=== PATIENT | male | born 1935 | race Caucasian/White ===

== ENCOUNTER 2020-03-14 12:53 | Outpatient (CLI) | payer OTHER, SELFPAY ==
--- NOTE | 2020-03-14 12:59 | CT_ITS ---
WS: [id number] CT ANGIOGRAPHY abdomen and pelvis AORTA HISTORY: AAA TECHNIQUE: CT angiogram is performed during IV injection. MIP imaging reviewed. Reformation images re viewed. All CT scans at [facility] use at least one of these dose optimization techniques: automated exposure control; mA and/or kV adjustment per patient size (includes targeted exams where dose is matched to clinical indication); or iterative reconstruction. CONTRAST: Omnipaque 350; 95 mL IV. DLP: 948.78 mGycm COMPARISON: 09/05/2019 Mild dependent changes at the lung bases. Mild enlargement of the cardiac chambers. No pericardial ef fusion. Small hiatal hernia. Early enhancement of the liver, spleen, gallbladder, pancreas, adrenals and kidneys are negative for acute change. Again noted is a 2.5 cm cyst in the RIGHT kidney. No ascites or adenopathy. Sigmoid div erticulosis without acute diverticulitis. Moderate enlargement the prostate gland. Abdominal aorta: Tortuous abdominal aorta. Significant deviation of the aorta to the RIGHT. Dilated e ctatic aorta with infrarenal. Transverse diameter obtained at a RIGHT axis to the lumen is 5.4 cm and has not significantly changed since the prior study. Visually the aneurysm appears stable. There is no periaortic hematoma or change in the calcification or progression of thrombus. Iliac arteries are both patent although tortuous. Small amount of intimal thickening at the origin of the celiac axis. S MA is normal. Osteopenia and degenerative changes in the spine. CT/CT angio abdomen pelvis 13338 IMPRESSION: 1. Tortuous ectatic abdominal aortic aneurysm. Infrarenal aneurysm with a maxi mum diameter of 5.4 cm. Similar to the prior study. 2. No acute abdominal abnormalities otherwise.
[2020-03-14 13:40] LABS: Blood Urea Nitrogen 16 mg/dL (8-23)
[2020-03-14] MEDS: iohexol 350 mg/mL 100 mL Btl IV (13:49)
== END 2020-03-14 12:54 | disposition home or self-care (01) ==
LOC: RADWPI 12:57
PROVIDERS: Family Provider Internal Medicine Cardiovascular Disease; PCP Internal Medicine Cardiovascular Disease; Visit Provider Emergency Medicine Emergency Medical Services
DX: I71.4 Abdominal aortic aneurysm, without rupture (principal)
CPT/HCPCS: 74174; 82565; 84520; Q9967

== ENCOUNTER 2020-10-09 08:21 | Outpatient (CLI) | payer OTHER, SELFPAY ==
[2020-10-09 08:57] LABS: Blood Urea Nitrogen 14 mg/dL (8-23)
--- NOTE | 2020-10-09 09:00 | CT_ITS ---
WS: [id number] CT ANGIOGRAPHY ABDOMEN AORTA HISTORY: I71.4 - Abdominal aortic aneurysm, without rupture TECHNIQUE: CT angiogram is performed during IV injection. Reformation images reviewed. All CT scans a [facility] use at least one of these dose optimization techniques: automated exposure co ntrol; mA and/or kV adjustment per patient size (includes targeted exams where dose is matched to cli nical indication); or iterative reconstruction. CONTRAST: Omnipaque 350; 95 mL IV. DLP: 727.8 mGycm COMPARISON: 03/14/2020 Chronic emphysematous changes at the lung bases. Cardiac chambers are moderately enlarged. No pericar dial effusion. Small hiatal hernia. Abdominal aorta: Markedly tortuous dilated abdominal aorta. Dilated aorta extends to the RIGHT of mid line. There is marked dilatation of the infrarenal aorta. Maximum transverse diameter obtained perpen dicular to the long axis is 5.6 cm which is minimally increased by 2 mm since the prior study. Aneury sm extends over a length of 10 cm to the bifurcation. 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 Scattered calcification in a small amount of thr ombus throughout the aneurysm. Common iliac arteries are both patent. Mild ectasia but no aneurysmal dilatation. Celiac axis and superior mesenteric arteries are both patent with mild atherosclerotic pl aque. Calcified plaque at the origin of the renal arteries. 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 Scattered too small to characterize hypodensities in the liver. These were present on the prior study and probably small cysts. Normal size liver. Negative gallbladder. Pancreas and spleen are negative. Marked tortuosity of the splenic artery. No adrenal mass. Early enhancement phase of the kidneys dem onstrates no mass. 2.4 cm cyst RIGHT kidney. No free fluid or adenopathy. Ventral abdominal wall sylvia ia contains fat only. L1 compression fracture by 20% with 2 mm retropulsion of posterior superior endplate is new since 03/14. CT/CT angio abdomen 51600 IMPRESSION: 1. Markedly ectatic, tortuous infrarenal abdominal aortic aneurysm. Maximum di ameter 5.6 cm which is increased by 2 mm since the prior study from 03/14/2020. 2. Abdominal aortic aneurysm extends over length of 10 cm to the bifurcation. 3. Chronic emphysema and moderate cardiomegaly. 4. New L1 20% compression fracture.
[2020-10-09] MEDS: iohexol 350 mg/mL 100 mL Btl IV (09:11)
== END 2020-10-09 08:22 | disposition home or self-care (01) ==
LOC: RADWPI 08:26
PROVIDERS: PCP Internal Medicine; Visit Provider Internal Medicine
DX: I71.4 Abdominal aortic aneurysm, without rupture (principal); S32.010A Wedge compression fracture of first lumbar vertebra, initial encounter for closed fracture; X58.XXXA Exposure to other specified factors, initial encounter; J43.9 Emphysema, unspecified
CPT/HCPCS: 74175; 82565; 84520; Q9967

== ENCOUNTER 2020-10-16 14:01 | Outpatient (CLI) | payer OTHER, SELFPAY ==
--- NOTE | 2020-10-16 14:30 | CT_ITS ---
WS: [id number] CTA ABDOMEN PELVIS TECHNIQUE: Contrast enhanced CTA of the abdominal aorta and pelvis with coronal and sagittal reformat john images and additional MIP Images. CLINICAL INFORMATION: I71.4 - Abdominal aortic aneurysm, without rupture COMPARISON: Multiple prior examinations most recent October 09, 2020 DLP: 1042.[address] scans at [facility] use at least one of these dose optimization techniques: automat ed exposure control; mA and/or kV adjustment per patient size (includes targeted exams where dose is matched to clinical indication); or iterative reconstruction. FINDINGS: Again seen is the tortuous and aneurysmal abdominal aorta with marked dilatation of the infrarenal ab dominal aorta. This is unchanged since the recent study measuring approximately 5.9 x 5.5 x 9.3 cm AP by transverse by craniocaudal. 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 Ectatic and tortuous common iliac arteries bilaterally. Mild aorti c atheromatous disease. No significant peripheral mural thrombus. Celiac and SMA are patent. Proximal renal arteries are patent. Normal renal parenchymal enhancement. Inferior mesenteric artery is paten t. Diffuse fatty infiltration of the liver. Small low-attenuation lesions unchanged likely hepatic cysts but too small to definitively characterize. Gallbladder is contracted. Lung bases are well aerated. Noncalcified nodule left upper lobe measuring 4 mm. Dependent atelectasis in the lung bases. Small es ophageal hiatal hernia. Adrenal glands are normal. Normal renal parenchymal enhancement. No hydroneph rosis. Small right renal cyst. Incidental fat-containing umbilical hernia. Markedly enlarged prostate measuring 6.5 cm. Recommend correlation PSA. A few sigmoid diverticuli. L1 compression fracture is unchanged. CT/CT angio abdomen pelvis 80817 IMPRESSION: 1. Tortuous infrarenal abdominal aortic aneurysm is unchanged from the most re cent examination October 09, 2020. 2. Aneurysm measurements 5.9 x 5.5 x 9.3 cm AP by transverse by craniocaudal. 3. L1 compression fracture is unchanged.
[2020-10-16] MEDS: iohexol 350 mg/mL 100 mL Btl IV (14:32)
== END 2020-10-16 14:02 | disposition home or self-care (01) ==
LOC: RADWPI 14:03
PROVIDERS: PCP Internal Medicine; Visit Provider Internal Medicine
DX: I71.4 Abdominal aortic aneurysm, without rupture (principal); S32.010A Wedge compression fracture of first lumbar vertebra, initial encounter for closed fracture; X58.XXXA Exposure to other specified factors, initial encounter
CPT/HCPCS: 74174; Q9967

== ENCOUNTER 2020-11-16 10:15 | Outpatient (CLI) | payer OTHER, SELFPAY ==
[2020-11-16 10:22] VITALS: BMI 25.8
--- NOTE | 2020-11-16 10:58 | NMCV_ITS ---
NM avery perf SPECT r/s* [id number] Ammy Zavala Age: 84 Gender: M : 1935 Exam Date: 11/16/2020 12:08 Ordering Phys: Stephen Sifuentes M.D ([email or web address]) Technologist: MARIJA Jaime Exam Location: [facility] Indications: Chest pain STRESS TEST Please [facility] IMAGE PROTOCOL Rest/Stress 1 Lexiscan Day Radiopharmaceutical Dose (mCi) Administration Site Administered by Rest: Tc-99m 10.6 IV Nata Fred, PAPER SAMPLE CLERK Sestamibi Stress:Tc-99m 32.6 IV Nata Fred, PAPER SAMPLE CLERK Sestamibi Rest: 16-Nov-2020 60 Discovery 630 Stress: 16-Nov-2020 45 Discovery 630 0.4mg Lexiscan. Images obtained in supine and prone position. SPECT RESULTS Technical Quality: Good Raw Data Analysis: Normal Image Corrections: No attenuation or motion correction applied Summed Stress Score: 1 Summed Rest Score: 0 Summed Difference Score: 1 PERFUSION FINDINGS There is homogenous radiotracer uptake throughout the myocardium. No evidence of ischemia is noted FUNCTIONAL RESULTS (calculated via Gated SPECT) Stress Image LV EF (%): 65 Stress EDV (mL):102 TID: 1.1 Stress ESV (mL):36 FUNCTIONAL FINDINGS: There is normal left ventricular systolic function. IMPRESSIONS 1) Normal myocardial perfusion imaging without evidence of ischemia 2) LV systolic function is normal Stephen Sifuentes MD (Electronically Signed) Final Date: 16 November 2020 18:15 S
--- NOTE | 2020-11-16 10:58 | ECG_ITS ---
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 Interpretive Statements NAME OF STUDY: LEXISCAN SESTAMIBI STRESS TEST INDICATION: [Chest Pain, ] Procedure: At the baseline, the blood pressure was 154/73mmHg, with a heart rate of 46 bpm. The electrocardiogram showed sinus bradycardia, normal with normal ST and T waves. The Lexiscan was infused over a duration of 20 seconds. A total of 0.4 mg of Lexiscan was infused. The stress phase was continued for a total of 5 minutes. Heart rate at the end of stress phase was 71 bpm with a blood pressure 150/76 mmHg. The EKG at the peak infusion revealed sinus rhythm with no significant ST-T wave changes. Sestamibi was injected 20 seconds after Lexiscan infusion. Blood pressure at the end of the recovery phase was 142/71mmHg with a heart rate of 62 bpm. Conclusion: 1. Normal EKG response to Lexiscan infusion. 2. No Lexiscan induced chest pain or cardiac arrhythmia. 3. Normal blood pressure and heart rate response. 4. Sestamibi/sestamibi perfusion scan pending; see separate report. Electronically Signed On 11-25-2020 18:00:00 CDT by Stephen Sifuentes M.D. [id number]
[2020-11-16] MEDS: regadenoson 0.4 Mg/5 ml Syringe IVP (12:41)
[2020-11-16 12:50] VITALS: BP 142/71; PULSE 63
--- NOTE | 2020-11-16 13:30 | USCV_ITS ---
Ammy Zavala Age: 84 Gender: M : 1935 Exam Date: 11/16/2020 11:12 Ordering Phys: Stephen Sifuentes M.D ([email or web address]) Technologist: Britt Zhu [place] [facility] [place]: CHEST PAIN BP: 122 / 59 HR: 48 Rhythm: Sinus Technical Quality: FAIR MEASUREMENTS (Male / Female) Normal Values 2D ECHO LV Diastolic Diameter PLAX 3.4 cm 4.2 - 5.9 / 3.9 - 5.3 cm LV Systolic Diameter PLAX 2.4 cm LV Chamber Size 4.6 cm IVS Diastolic Thickness 1.2 cm 0.6 - 1.0 / 0.6 - 0.9 cm IVS Systolic Thickness 1.2 cm LVPW Diastolic Thickness 1.8 cm 0.6 - 1.0 / 0.6 - 0.9 cm LVPW Systolic Thickness 2.1 cm RV Chamber Size 3.9 cm LVOT Diameter 2.0 cm LV Ejection Fraction 2D Teich 57.5 % LV Ejection Fraction MOD 2C 69.8 % LV Ejection Fraction 2C AL 70.8 % LA Diameter 3.3 cm LA Width 3.2 cm LA Height 3.6 cm RA Width 2.9 cm RA Height 3.9 cm Aorta at Sinotubular Diameter 3.1 cm M-MODE LV Diastolic Diameter MM 7.5 cm 4.2 - 5.9 / 3.9 - 5.3 cm LV Systolic Diameter MM 4.9 cm LV Ejection Fraction MM Teich 61.9 % IVS Diastolic Thickness MM 0.8 cm 0.6 - 1.0 / 0.6 - 0.9 cm IVS Systolic Thickness MM 1.3 cm LVPW Diastolic Thickness MM 0.9 cm 0.6 - 1.0 / 0.6 - 0.9 cm LVPW Systolic Thickness MM 1.4 cm Aortic Annulus Diameter 3.5 cm LA Ao Ratio MM 1.1 MV E Point Septal Separation 0.5 cm DOPPLER AV Peak Velocity 161.7 cm/s LVOT Peak Velocity 128.7 cm/s AV Area Cont Eq vti 2.7 cm squared AV Area Cont Eq pk 2.6 cm squared MV Area PHT 2.5 cm squared Mitral E to A Ratio 0.9 MV E' Velocity 37.0 cm/s Mitral E to MV E' Ratio 6.8 Mitral E to LV E' Lateral Ratio 6.4 Mitral E to LV E' Septal Ratio 7.2 TR Peak Velocity 260.7 cm/s TR Peak Gradient 27.2 mmHg TV Peak E Velocity 51.0 cm/s Right Atrial Pressure 3.0 mmHg Pulmonary Artery Systolic Pressu 30.2 mmHg PV Peak Velocity 67.0 cm/s RV Acceleration Time 0.2 s RV Ejection Time 0.4 s RV AcT/ET 0.4 FINDINGS Left Ventricle Normal left ventricular cavity size. Normal left ventricular systolic function. No regional wall motion abnormalities. Left ventricular ejection fraction is estimated at 61 %. Grade I/IV diastolic dysfunction (abnormal relaxation filling pattern), normal to mildly elevated filling pressures. Right Ventricle The right ventricle is normal in size and function. Right Atrium The right atrium is normal in size. Left Atrium The left atrium is normal in size. Mitral Valve Structurally normal mitral valve without significant stenosis or prolapse. There is no mitral regurgitation. Aortic Valve Moderate aortic valve calcification. No aortic valve stenosis. Mild aortic valve regurgitation. Tricuspid Valve Structurally normal tricuspid valve without significant stenosis or regurgitation. Pulmonary artery systolic pressure is normal. Pulmonic Valve Structurally normal pulmonic valve without significant stenosis. There is no pulmonic regurgitation. Pericardium Normal pericardium without effusion. Aorta Normal ascending aorta dimension. CONCLUSIONS 1-Normal left ventricular cavity size. Normal left ventricular systolic function. No regional wall motion abnormalities. Left ventricular ejection fraction is estimated at 61 %. Grade I/IV diastolic dysfunction (abnormal relaxation filling pattern), normal to mildly elevated filling pressures. 2-Moderate aortic valve calcification. No aortic valve stenosis. Mild aortic valve regurgitation. 3-There is no pericardial effusion. 4-Pulmonary artery systolic pressure is within normal limits. 5-Right atrial pressure is around 5 mm of mercury. 6-There are no prior echocardiogram studies to compare. Marisa Elizabeth MD (Electronically Signed) Final Date: 16 November 2020 18:22 S
== END 2020-11-16 10:16 | disposition home or self-care (01) ==
LOC: CDL 10:17
PROVIDERS: PCP Internal Medicine; Visit Provider Internal Medicine
DX: I71.4 Abdominal aortic aneurysm, without rupture (principal); R07.9 Chest pain, unspecified; I48.91 Unspecified atrial fibrillation; I35.1 Nonrheumatic aortic (valve) insufficiency
CPT/HCPCS: 78452; 93017; 93306; A9500; J2785

== ENCOUNTER → 2021-01-23 12:20 | Outpatient (BNVA) | payer OTHER, SELFPAY | PROVIDERS: PCP Internal Medicine; Visit Provider Thoracic Surgery (Cardiothoracic Vascular Surgery) | DX: Z01.812 Encounter for preprocedural laboratory examination (principal); Z20.822 Contact with and (suspected) exposure to COVID-19 | CPT/HCPCS: 87635 ==

== ENCOUNTER 2021-01-28 06:21 | Inpatient (IN) | payer OTHER, MEDICARE, SELFPAY ==
[2021-01-23 10:53] VITALS: BMI 25.2
[2021-01-23 11:50] LABS: Basophils % 0.3 %; Eosinophils # 0.1 10^3/uL (0.0-0.8); Eosinophils % 1.5 %; Hemoglobin 13.8 g/dL (11.7-16.6); Lymphocytes # 0.9 10^3/uL (0.8-4.8); Lymphocytes % 13.8 %; Mean Corpuscular HGB Conc 32.9 g/dL (30.0-36.0); Mean Corpuscular Hemoglobin 32.6 pg (28.0-34.0); Mean Corpuscular Volume 99.3 fL (80-94); Mean Platelet Volume 10.1 fL (7.4-10.4); Monocytes # 0.8 10^3/uL (0.2-0.9); Monocytes % 12.3 %; Neutrophils # 4.86 10^3/uL (1.8-7.7); Neutrophils % 71.8 %; Nucleated Red Blood Cells % 0 %; Platelet Count 214 10^3/cmm (130-400); Red Blood Count 4.23 10^6/uL (4.1-5.3); Red Cell Distribution Width 13.2 % (12.1-15.1); White Blood Count 6.8 10^3/uL (4.0-10.0)
--- NOTE | 2021-01-23 11:53 | ANES.PREANE2 ---
Pre-Anesthetic Assessment Pre-Anesthetic Assessment: Height/Weight: Height 1.79 m Weight 80.739 kg Preop Diagnosis: Endovascular abdominal aortic aneurysm repair Proposed Procedure: Operation Date: 01/28/21 07:00 Proposed Procedures p AAA Stent Cutdown Endovascular Aortic Repair with poss open abdominal(Not Applicable) - Jermaine Estrada MD Operation Date: 01/28/21 07:00 Proposed Procedures p Endovascular Aortic Repair(Not Applicable) - Jermaine Estrada MD Familial anesthetic complications: None Social: Social History: No alcohol and No tobacco Exam: Pre-Anes Outpt Exam: alert, oriented x 3, clear to auscultation bilaterally and regular rate & rhythm Airway: Cervical ROM: WNL MP: 4 Dentition: Full CV/HEM: CV/HEM: Afib Comments: abdominal aortic aneurysm Metabolic: Metabolic: Hyperlipidemia Anesthetic Plan: ASA status: 3 Anesthesia: General Other: A-line Risk of > 500 ml blood loss (7ml/kg in children): No PFSH Anesthesia PFSH: Medical History AAA (abdominal aortic aneurysm) Hyperlipidemia Family History Other Diabetes Social History Smoking and tobacco status: never smoked Household members: spouse Marital status: Data Anesthesia CBC & Chem 7: 01/23/21 11:15 01/23/21 11:15 Other Labs: Laboratory Results - last 48 hr 01/23/21 11:15 WBC 6.8 RBC 4.23 Hgb 13.8 Hct 42.0 MCV 99.3 H MCH 32.6 MCHC 32.9 RDW 13.2 Plt Count 214 MPV 10.1 Neut % (Auto) 71.8 Lymph % (Auto) 13.8 Bollinger % (Auto) 12.3 Eos % (Auto) 1.5 Baso % (Auto) 0.3 Neut # (Auto) 4.86 Lymph # (Auto) 0.9 Bollinger # (Auto) 0.8 Eos # (Auto) 0.1 Baso # (Auto) 0.0 Nucleated RBC % (auto) 0 Nucleated RBCs # 0.0 Cardiac Studies: No Data to Display
[2021-01-23 12:03] LABS: Add Urine Microscopic? YES; Bilirubin Urine Neg (Negative); Blood Urine 2+ (Negative); Glucose Urine UA Norm (Normal); Ketones Urine 1+ (Negative); Leukocyte Esterase Urine Negative (Negative); Nitrate Urine Negative (Negative); Protein Urine Neg (Negative); Urine Appearance Clear (CLEAR); Urine Color Yellow (Yellow); Urobilinogen Urine Norm (Negative); pH Urine 5 (5-7)
[2021-01-23 12:07] LABS: Mucus Urine 4+ /hpf
[2021-01-23 12:11] LABS: Anion Gap 13.4 (5-19); Blood Urea Nitrogen 17 mg/dL (8-23); Carbon Dioxide 29 mmol/L (22-29); Chloride 101 mmol/L (98-107); Glucose 126 mg/dL (65-115); Osmolality Calculated 291 mOsm/kg (285-295); Potassium 4.4 mmol/L (3.5-5.1); Sodium 139 mmol/L (136-145)
[2021-01-23 12:15] LABS: Add Urine Culture? No; Bacteria Urine TRACE /hpf; Squamous Epithelial Cell Urine 0-4 /hpf (0-5); WBC Urine 0-4 /hpf (0-5)
[2021-01-28] VITALS (59 sets, daily range): BP systolic 112–148; BP diastolic 58–97; PULSE 41–71; RESP 6–31; TEMP 36.6–37; O2SAT 83–99
--- NOTE | 2021-01-28 06:13 | ECG_ITS ---
[facility] Test Date: 2021-01-28 Pat Name: Ammy Zavala Department: Room: ICU10 Gender: Male Volleyball Coach: : 1935 Requested By: Jermaine Estrada Order Number: [id number] Edis MD: Terra An M.D. Measurements Intervals [place] Rate: 58 P: 29 FL: 229 QRS: 6 QRSD: 94 T: 75 QT: 415 QTc: 410 Interpretive Statements SINUS BRADYCARDIA WITH FIRST DEGREE AV BLOCK WITH OCCASIONAL VENTRICULAR PREMATURE COMPLEXES NONSPECIFIC T-WAVE ABNORMALITY No previous ECG available for comparison Electronically Signed On 01-29-2021 0:51:50 CDT by Terra An M.D. [id number]
--- NOTE | 2021-01-28 06:13 | XRR_ITS ---
PROCEDURE INFORMATION: Exam: XR Chest Exam date and time: 01/28/2021 6:22 AM Age: 85 years old Clinical indication: Pre-operative exam; Cardiovascular screening and respiratory screening exam; Additional info: Preop for evar TECHNIQUE: Imaging protocol: XR of the chest. Views: 2 views. COMPARISON: No relevant prior studies available. FINDINGS: Lungs: Unremarkable. No consolidation. Pleural spaces: Unremarkable. No pleural effusion. No pneumothorax. Heart/Mediastinum: Unremarkable. No cardiomegaly. Bones/joints: Unremarkable. XR/XR chest 2V* [id number] IMPRESSION: No acute findings.
--- NOTE | 2021-01-28 06:19 | PM.HP ---
Providers/Chief Complaint Admitting Physician: Dr. Estrada Primary Care Provider: Esau Asif Chief Complaint: aaa repair possible open abdominal History of Present Illness Ammy Zavala is an 85 year old male I saw originally in consultation on an outpatient clinic visit on November 05 upon referral for an infrarenal abdominal aortic aneurysm with documented enlargement. Aneurysm measures 5.9 x 5.5 x 9.3 cm in the AP by transverse by craniocaudal dimensions. There is a small juxtarenal component. The left common iliac artery comes off the termination point of the aneurysm. There is noted moderate tortuosity. Neck angulation is 14.2 degrees. He has a family history of AAA with his brother having repair several years ago in [place]. He has never used tobacco. He is asymptomatic from his AAA. He is followed through the [facility] system. He had been previously followed by Dr. Cardenas from our heart care services and was septic referred by Dr. Sifuentes due to documented further enlargement of his AAA. During his original evaluation with me he was noted to have atrial fibrillation. He was evaluated by Dr. Winslow which included stress testing and was cleared from a cardiac standpoint to proceed with plans for AAA. Our [employer] technical team has assisted with evaluation and we are currently recommending an alto system. Since his last visit with me of November 22, he remains asymptomatic. 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 He is eager to proceed with plans for repair. Review of Systems Const: Denies: fever(s), chills, change in appetite, change in weight, fatigue or night sweats Eyes: Denies: change in vision or blurry vision ENMT: Denies: odynophagia or hoarseness Card: Denies: chest pain, palpitations, irregular heart rhythm or edema Resp: Denies: dyspnea or productive cough GI: Denies: abdominal pain, nausea, vomiting, dysphagia, heartburn or change in bowel habits : Denies: difficulty urinating, dysuria, urinary frequency, urinary urgency or urinary hesitancy Musc: Denies: extremity pain or extremity swelling Skin/Breast: Denies: rash Neuro: Denies: headache(s), numbness in extremities, weakness in extremities or sensory changes Psych: Denies: anxiety, depression or change in appetite Endo: Denies: polyuria, polydipsia or cold intolerance Young/Lymph: Reports: easy bruising; Denies: easy bleeding, petechiae or enlarged lymph nodes Medications/Allergies Home Medications Medication Instructions Recorded Confirmed Last Taken Type ascorbic acid (vitamin C) 500 mg 500 mg PO DAILY 03/08/20 01/23/21 Unknown History capsule finasteride 5 mg tablet 5 mg PO DAILY 03/08/20 01/23/21 Unknown History garlic 1,000 mg capsule 1,000 mg PO DAILY 03/08/20 01/23/21 Unknown History tamsulosin 0.4 mg capsule 0.4 mg PO DAILY 03/08/20 01/23/21 Unknown History Allergies Allergy/AdvReac Type Severity Reaction Status Date / Time azithromycin Allergy Unknown Unknown Verified 11/22/20 08:58 PFSH Acute PFSH: Medical History AAA (abdominal aortic aneurysm) Hyperlipidemia Family History Other Diabetes Social History Smoking and tobacco status: never smoked Household members: spouse Marital status: Physical Exam Const: COMMON NORMALS: patient oriented x3 and alert ORIENTATION/CONSCIOUSNESS: Yes oriented to person, Yes oriented to place and Yes oriented to time HENMT: COMMON NORMALS: normocephalic HEAD & SCALP: normocephalic; no cranial bruits Neck/C-Spine: COMMON NORMALS: full ROM, supple, no JVD and No carotid bruits GENERAL: Yes trachea midline CERVICAL SPINE: Yes cervical ROM normal Chest: COMMONS NORMALS: normal inspection of the chest and normal palpation of entire chest wall Resp: COMMON NORMALS: normal respiratory effort, No use of accessory muscles, clear to auscultation bilaterally and percussion normal EFFORT & INSPECTION: Yes able to speak in complete sentences and Yes symmetric chest movement AUSCULTATION: clear to auscultation bilaterally PERCUSSION: percussion normal Cardio: COMMON NORMALS: no JVD, regular rate, S1 normal heart sound present, S2 normal heart sound present, No gallops present (Cardio), No murmurs present (Cardio), No rub (Cardio) and Peripheral pulses 2+ throughout JUGULAR VENOUS DISTENTION: no JVD RATE: regular rate RHYTHM: regular rhythm HEART SOUNDS: S1 normal heart sound present and S2 normal heart sound present PERIPHERAL PULSES: Peripheral pulses 2+ throughout GI: COMMON NORMALS: Normal to inspection, nondistended, normoactive bowel sounds present, Soft to palpation and no bruits AUSCULTATION: Yes normoactive bowel sounds PALPATION: Yes Pulsatile mass present (Easily palpable abdominal aneurysm. Nontender.) Neuro: COMMON NORMALS: patient oriented x3, no focal motor deficits and no sensory deficits noted SENSORIUM/ORIENTATION: Yes alert, Yes oriented to person, Yes oriented to place and Yes oriented to time GAIT: Yes Normal gait present Data : 01/23/21 11:15 01/23/21 11:15 A&P Assessment and plan (1) AAA (abdominal aortic aneurysm): 85-year-old gentleman with a 5.9 cm juxtarenal abdominal aortic aneurysm. He is undergone careful preop evaluation including cardiac clearance. Details of risk of AAA repair were frankly discussed. We tentatively plan to initiate repair by endovascular technique. He understands that this may result in need for open repair. Risks reviewed include the possibility of , stroke, heart attack, major bleeding, kidney failure requiring hemodialysis, acute ischemia to the lower extremities requiring further procedure or possible major amputation, need for abdominal approach for open repair, infection, pneumonia, organ failure, failure to benefit, prolonged hospital stay, pain after the procedure, need for further procedures, inability to complete the procedure, and need for long-term followup. All questions were answered. Appropriate consents have been provided for review and signature. Status: Acute Attestations Medical Necessity Statement*: 5.9 cm juxtarenal abdominal aorta aneurysm Time Spent in Patient Care: Greater than 35 minutes Coding Level of Care Code Acute Cryptological Technician for [facility] Kristofer Diagnoses AAA (abdominal aortic aneurysm) I71.4
--- NOTE | 2021-01-28 07:14 | P.ANESUD_ITS ---
Pre-Anesthetic Update Pre-Anesthetic Assessment: Date of Surgery/Procedure: 01/28/21 Preop Yasmine gnosis: Endovascular abdominal aortic aneurysm repair Proposed Procedure: Operation Date: 01/28/21 07:00 Proposed Procedures p AAA Stent Cutdown Endovascular Aortic Repair with poss open abdominal(Not Applicable) - Jermaine Estrada MD Operation Date: 01/28/21 07:00 Proposed Procedures p Endovascular Aortic Repair(Not Applicable) - Jermaine Esrtada MD Any changes to Pre-Anesthetic Assessment?: No Labs Last 48hrs: Laboratory Results - last 48 hr 01/23/21 11:15 Blood Type O Positive Rho(D) Type Positive / 4+ Antibody Screen Negative Crossmatch See Detail Vitals: Temperature 98.6 F 01/28/21 06:49 Temperature Source Skin 01/28/21 06:49 Pulse Rate 58 L 01/28/21 06:49 Pulse Rhythm 01/28/21 06:49 Pulse Strength 3+ Normal 01/28/21 06:49 Respiratory Rate 16 01/28/21 06:49 Blood Pressure 145/83 01/28/21 06:49 Blood Pressure [place] n 103 01/28/21 06:49 Pulse Oximetry 98 01/28/21 06:49 Oxygen Delivery Me thod 01/28/21 06:49 Exam: Pre-Anes Outpt Exam: alert, oriented x 3, clear to auscultation bilaterally and regular rate & rhythm Cardiac Studies: No Data to Display
--- NOTE | 2021-01-28 07:14 | ANES.PROC ---
Anesthesia Procedures Procedure/Date: 01/28/21 Arterial Line: Time Out Performed: Yes Consent: requested by attending/covering physician, from patient, risks and benefits reviewed and patient agrees to proceed Size (Gauge): 20 Technique Used: guide wire technique Post-Procedure: dry sterile dressing placed Patient Tolerated Procedure: well Complications: none Site: right and radial Additional Comments: Preop, 2% lido 0.5ml, tolerated well.
--- NOTE | 2021-01-28 10:19 | P.OP_ITS ---
Operative Report Date of procedure: January 28, 2021 Pre-op Diagnosis: Abdominal aortic aneurysm Post-op diagnosis: same Procedure Done: Endovascular repair of infrarenal abdominal aortic aneurysm Implants: Endologix AF X2 bifurcated main body-28 mm. Bhatia supra extension-34 mm Pathology: none sent Surgeon: Jermaine Estrada Power Plant Installer: Marisa Elizabeth Power Plant Installer: Dr. Elizabeth and Dr. Estrada were co-surgeons. Anesthesia: General Complications: None Condition: stable Disposition: ICU Brief History: Mr. Zavala is an 85-year-old gentleman with a known infrarenal abdominal aortic aneurysm with recent enlargement, now measuring 5.9 x 5.5 x 9.3 cm in the AP by transverse by craniocaudal dimensions. There is a smaller j uxtarenal component with a reverse taper. Recommendations for endovascular repair were carefully discussed. Details of risk of the procedure were reviewed. Appropriate consents have been reviewed and signed. Procedure: Mr. Zavala was taken to the catheterization lab, carefully positioned, and then underwent general endotracheal anesthesia. Appropriate invasive lines were placed including right radial arterial line and adequate vascular access. His lower chest and entire abdomen, groin region, and thighs were sterilely prepped and draped. Cutdown was not required for this procedure and was completed percutaneously on both sides. Utilizing percutaneous ultrasound guided technique via needle access and guidewire placement with fluoroscopy, a 6 Zimbabwean sheath was placed in the left common femoral artery, and ProGlide Perclose securing sutures x 2 were engaged in the arterial wall and secured. The left 6 Zimbabwean sheath was subsequently changed out for a 17 Zimbabwean introducer sheath. He then received 10,000 units of heparin and ACT was confirmed to be therapeutic. 7 Zimbabwean catheter was placed in the right common femoral artery. A marked pigtail catheter was then advanced up the right side. Angiography was then performed to measure vessel length to characterize anatomy and topography. Predilatation was not required. A J-wire was utilized to be exchanged on the ipsilateral side to a Lunderquist stiff wire. Pigtail catheter was removed in the right side and a snare was placed on the side. Next, a loaded 28 x 120 AFX2 bifurcated device and delivery sheath were placed over the stiff wire and advanced along with the contralateral wire up through the 17 Zimbabwean AFX introducer sheath utilizing wireguide. The contralateral wire was then snared and pulled out through the right common femoral artery. The AFX2 bifurcated device was transferred into the AFX introducer sheath and advanced under fluoroscopic guidance until distal limbs were above the aortic bifurcation thereby releasing the limbs of the graft. The entire system was pulled down to the aortic bifurcation. The main body of the bifurcated graft was then deployed by pulling on the controlled cord handle. Next, we deployed the contralateral limb by pulling the yellow limb cover, advancing a pigtail catheter over the contralateral wire into the tip was in contact with the wire lock, with wire lock being released by pulling it with a stationary pigtail catheter in position. The ipsilateral limb was then deployed by pinning the inner core and retracting the AFX introducer sheath. Next, we advanced and deployed a 34 x 100 supra extension endograft after angiography was performed to visualize the renal arteries. Iliac extensions [were/were not] required. Next, we removed the extension delivery device from the AFX introducer sheath. A CODA balloon was then utilized to clear the proximal extension distally just above the bifurcation to allow for complete wall contact. The entire endograft system was then ballooned in a similar fashion beginning at the level renal arteries extending distally. Final angiography was performed revealing appropr iate graft placement, bilateral renal artery opacification, and no evidence for endoleak. Next, catheters, sheaths, and guidewires were removed under fluoroscopic guidance. Perclose device was then utilized to close the left and right common femoral arteries at the insertion sites. They were noted to be hemostatic. 50 mg of protamine was given for heparin reversal. Both groins was noted to be hemostatic. Sterile dressings were applied. He had palpable dorsalis pedis pulses bilaterally at completion of the procedure. He was awakened and extubated on the catheterization table. Mr. Zavala was then transferred to the ICU in stable condition. I did newspaper delivery counselor with his at the completion of the procedure.
--- NOTE | 2021-01-28 10:19 | PC.CHAP ---
Pastoral Care Encounter/Spiritual Assessment Type of Contact [] Declined pattern vault clerk visit [] Patient/Family/Request visit [] Outpatient visit [] Follow-up visit [] Physician referral [] Code/Alert [] Routine visit [] Staff referral [] Actively dying [] Patient sleeping [] Family support [] [] Out of room [] Palliative care [] [] Receiving care in room [] Pre-surgical visit [] Trauma [] Long length of stay [] ICU visit [] Other: Relational/Emotional Strength [] Patient feels connected with others/family/visitors/staff [] Distress [] Loneliness/isolation [] Abandonment Spirituality of Patient [] Person of Meggan [] Attends Synagogue of their Meggan [] Believes in Prayer [] Reads Bible or Presybeterian materials [] There are Spiritual issues to be addressed Solid Waste Landfill Technician Interventions [x] Prayer [] Active listening [] Non-anxious presence [] Spiritual/emotional support [] Crisis/trauma care [] Spiritual counseling [] Bereavement support [] Provided bereavement packet [] Provided Bible/devotional materials [] Provided toy/stuffed animal, coloring book to patient or family member [] Provided Communion [] Anointing/[place] [] Salvation [] Completed spiritual assessment [] Other: Impact on Illness or Injury [] Angry [] Fearful [] Anxious [] Often cries [] Exhaustion [] Unable to work [] Unable to attend lutheran [] Unable to walk/stand [] Unable to read [] Unable to drive [] Unable to eat/drink [] Unable to sleep [] Unable to be with family [] Patient intubated [] Other: Summary going to surgery Time spent with patient 2min
[2021-01-28] MEDS: lactated ringers 1,000 ML 150 ML IV ×2 (12:13→16:24)
--- NOTE | 2021-01-28 14:00 | PC.NURSE ---
ART line removed, cath tip intact. Pressure held for 10 min. will continue to monitor.
--- NOTE | 2021-01-28 14:52 | ANE.PACU2 ---
Inpatient post-anesthesia follow up: Airway intact: Yes Vital signs: Temperature 98.1 F Pulse Rate 60 Respiratory Rate 29 Blood Pressure 112/59 Pulse Oximetry 96 Oxygen Delivery Me thod Nasal Cannula Oxygen Flow Rate 6 Fraction of Inspir ed Oxygen Hydration adequate: Yes Nausea and vomiting: No Pain level: 1 Mental status: Baseline
[2021-01-28] MEDS: tamsulosin 0.4 mg Capsule PO ×2 (15:11→20:14)
[2021-01-28] MEDS: ceFAZolin 1,000 MG in sodium chloride 0.9% (plus) 50 ML 100 MG IV (16:24)
[2021-01-28] MEDS: lactated ringers 1,000 ML 50 ML IV (20:14)
[2021-01-29] VITALS (28 sets, daily range): BP systolic 106–137; BP diastolic 50–78; PULSE 54–72; RESP 8–34; TEMP 36.3–36.7; O2SAT 89–96
--- NOTE | 2021-01-29 | PC.NURSE ---
Pt tried voiding on his own. Pt was in the bathroom for approx 10-15 min. Pt was only able to void 50mL on his own. Pt was straight cath using a 12f porras cath using aseptic technique. Slight resistance noted when inserting cath. 750mL of residual emptied. Pt tolerated well.
[2021-01-29 04:43] LABS: Basophils % 0.2 %; Eosinophils # 0.1 10^3/uL (0.0-0.8); Eosinophils % 0.5 %; Hematocrit 36.9 % (42.0-52.0); Hemoglobin 11.8 g/dL (11.7-16.6); Lymphocytes # 0.9 10^3/uL (0.8-4.8); Lymphocytes % 8.3 %; Mean Corpuscular Hemoglobin 32.8 pg (28.0-34.0); Mean Corpuscular Volume 102.5 fL (80-94); Mean Platelet Volume 10.3 fL (7.4-10.4); Monocytes # 0.9 10^3/uL (0.2-0.9); Monocytes % 7.8 %; Neutrophils # 9.31 10^3/uL (1.8-7.7); Neutrophils % 82.7 %; Nucleated Red Blood Cells % 0 %; Platelet Count 174 10^3/cmm (130-400); Red Cell Distribution Width 13.1 % (12.1-15.1); White Blood Count 11.3 10^3/uL (4.0-10.0)
--- NOTE | 2021-01-29 06:44 | P.DS_ITS ---
Discharge Providers Date of Admission: 01/28/21 06:21 Date of Discharge: January 29, 2021 Attending Provider at Admission: Jermaine Estarda MD Attending Provider at Discharge: Jermaine Estrada MD Primary Care Provider: Esau Asif Diagnoses at Discharge Discharge Diagnosis (1) AAA (abdominal aortic aneurysm): Status: Acute Reason for Visit Reason for Visit: aaa repair possible open abdominal Hospital Course Hospital Course Mr. Hernandez is an 85-year-old gentleman who was electively admitted for planned endovascular repair of a 5.9 cm infrarenal abdominal aortic aneurysm. He had undergone outpatient preoperative evaluation and cardiac clearance. He was electively admitted on January 28 and underwent endovascular repair utilizing Endologix bifurcated 28 x 120 mm graft with a 34 x 100 mm suprarenal extension. Postoperatively, he convalesced in the ICU where he remained hemodynamically stable. He had excellent pulses distally. Groin access sites remained clean without drainage or swelling. He did have some difficulty voiding after removal of the Mcfarland catheter and had an in and out catheterization was performed at midnight. Postop day #1 morning he is able to void 250 cc though he still has at least a 350 to 100 cc residual. He is followed for BPH by urology out of [place] and his primary care provider is at the [facility] clinic. This morning he is ambulating without difficulty and states he does not have an urge to urinate. He will be discharged home today in stable condition. Contact information has been provided as well as activity limitations. Signs and symptoms of infection or vascular concerns have been reviewed. He is to notify his primary care provider, urologist, or should he have any concerns related to voiding difficulties. He will be scheduled to follow-up with me in 1 week. At the time of discharge she is in stable condition. Physical Exam Resp: COMMON NORMALS: normal respiratory effort, No use of accessory muscles and clear to auscultation bilaterally AUSCULTATION: clear to auscultation bilaterally Cardio: COMMON NORMALS: regular rate, regular rhythm, No murmurs present (Cardio) and No rub (Cardio) RATE: regular rate RHYTHM: regular rhythm PERIPHERAL PULSES: dorsalis pedis present positive bilateral 2+ OTHER: No evidence for embolic phenomenon. Extremity: COMMON NORMALS: no clubbing, cyanosis or edema Urinary Catheter Management^: Mcfarland: Cath Placed During This Visit: yes, but has since been removed by the nurse Reason for Continuing Indwelling Catheter: Accurate Measurement of Urinary Output in Critically Ill Patients Date Urinary Catheter Removed: 01/28/21 Time Urinary Catheter Discontinued: 15:00 Discharge Data Data Completed and Pending: Completed Studies During Hospitalization Category Date Time Status XR chest 2V* 7104 6 Routine Exams 01/28/21 06:13 Completed Pending at discharge Category Date Time Status CABLE RESPOOLER request for service Routin e Exams 01/28/21 07:03 Taken Basic Metabolic P agustín Routine Lab 01/29/21 04:44 Ordered CTS [Type and Scr een - Cardiac] Rou shona Lab 01/23/21 11:15 Results Leukocyte Reduced RBC Routine Lab 01/23/21 11:15 Results Labs from last 24 hours 01/29/21 01/29/21 01/23/21 04:05 04:05 11:15 WBC 11.3 H RBC 3.60 L Hgb 11.8 Hct 36.9 L MCV 102.5 H MCH 32.8 MCHC 32.0 RDW 13.1 Plt Count 174 MPV 10.3 Neut % (Auto) 82.7 Lymph % (Auto) 8.3 [place] % (Auto) 7.8 Eos % (Auto) 0.5 Baso % (Auto) 0.2 Neut # (Auto) 9.31 H Lymph # (Auto) 0.9 [place] # (Auto) 0.9 Eos # (Auto) 0.1 Baso # (Auto) 0.0 Nucleated RBC % (a uto) 0 Nucleated RBCs # 0.0 Sodium Cancelled Potassium Cancelled Chloride Cancelled Carbon Dioxide Cancelled Anion Gap Cancelled BUN Cancelled Creatinine Cancelled GFR Calculation Cancelled Glucose Cancelled Calculated Osmolal ity Cancelled Calcium Cancelled Blood Type O Positive Rho(D) Type Positive / 4+ Antibody Screen Negative Crossmatch See Detail Vitals: Last Vital Signs Temp 98.1 F 01/29/21 06:00 Pulse 63 01/29/21 06:00 Resp 24 H 01/29/21 06:00 BP 137/74 01/29/21 06:00 Pulse Ox 92 01/29/21 06:00 Discharge Plan Discharge Patient Disposition: Home Condition: Stable Prescriptions: Continued tamsulosin [Flomax] 0.4 mg capsule 0.4 mg PO DAILY RF: 0 finasteride 5 mg tablet 5 mg PO DAILY RF: 0 garlic 1,000 mg capsule 1,000 mg PO DAILY RF: 0 ascorbic acid (vitamin C) 500 mg capsule 500 mg PO DAILY RF: 0 Discharge Orders: Discharge Order (Routine); Ordered 01/29/21 Ordered By: Jermaine Estrada Referrals: Jermaine Estrada MD [Physician] - 1 week Discharge Diet: Usual diet Discharge Activity: Limit activity as instructed Patient Instructions: Abdominal Aortic Aneurysm (DC), Opioid Safety Activity Restrictions/Additional Instructions: May begin daily showers No swimming or tub baths x1 week No heavy lifting or stretching x1 week Report any increasing pain in the groin or legs. Report any redness, swelling or drainage from the groin incisions. Report any substantial swelling of 1 or both legs. Report any increasing leg pain with walking Report any increasing trouble with urination Discharge Attestations Time Spent in Discharge Care*: less than 30 min Specific Discharge Activities: educating patient, discussing with community case manager/social workers/dc planners, documenting/other paperwork and evaluating patient/reviewing data Status at Discharge: Cognitive status at discharge: cognitively intact , Behavioral status at discharge: cooperative , Functional status at discharge: independent ambulation Overall status at discharge: patient is back to baseline Quality Metrics Clinical Quality Measures During this hospital stay, did patient experience: None Coding Level of Care Code Acute Chg FW DC note Diagnoses AAA (abdominal aortic aneurysm) I71.4
[2021-01-29 07:54] LABS: Anion Gap 13.8 (5-19); Blood Urea Nitrogen 15 mg/dL (8-23); Calcium 8.5 mg/dL (8.5-10.5); Carbon Dioxide 24 mmol/L (22-29); Chloride 105 mmol/L (98-107); Glucose 94 mg/dL (65-115); Osmolality Calculated 289 mOsm/kg (285-295); Potassium 3.8 mmol/L (3.5-5.1); Sodium 139 mmol/L (136-145)
[2021-01-29] MEDS: ceFAZolin 1,000 MG in sodium chloride 0.9% (plus) 50 ML 100 MG IV ×2 (08:17)
[2021-01-29] MEDS: pantoprazole DR 40 mg Tablet PO (08:17)
[2021-01-29] MEDS: finasteride 5 mg Tablet PO (08:17)
--- NOTE | 2021-01-29 09:22 | PC.CHAP ---
Pastoral Care Encounter/Spiritual Assessment Type of Contact [] Declined sugar cane planting equipment operator visit [] Patient/Family/Request visit [] Outpatient visit [] Follow-up visit [] Physician referral [] Code/Alert [x] Routine visit [] Staff referral [] Actively dying [x] Patient sleeping [] Family support [] [] Out of room [] Palliative care [] [] Receiving care in room [] Pre-surgical visit [] Trauma [] Long length of stay [x] ICU visit [] Other: Relational/Emotional Strength [] Patient feels connected with others/family/visitors/staff [] Distress [] Loneliness/isolation [] Abandonment Spirituality of Patient [] Person of Meggan [] Attends Adventist of their Meggan [] Believes in Prayer [] Reads Bible or Druze materials [] There are Spiritual issues to be addressed Air Deodorizer Servicer Interventions [x] Prayer [x] Active listening [x] Non-anxious presence [x] Spiritual/emotional support [] Crisis/trauma care [] Spiritual counseling [] Bereavement support [] Provided bereavement packet [] Provided Bible/devotional materials [] Provided toy/stuffed animal, coloring book to patient or family member [] Provided Communion [] Anointing/[place] [] Salvation [x] Completed spiritual assessment [] Other: Impact on Illness or Injury [] Angry [] Fearful [] Anxious [] Often cries [] Exhaustion [] Unable to work [] Unable to attend moravian [] Unable to walk/stand [] Unable to read [] Unable to drive [] Unable to eat/drink [] Unable to sleep [] Unable to be with family [] Patient intubated [] Other: Summary patient in pretty good mood... feeling stronger. present... first time they slept apart in 40 years... edenilson couple Time spent with patient 10 min
--- NOTE | 2021-01-29 10:03 | PC.NURSE ---
Pt discharged home. All questions answered and instructions gone over. taken to personal vehicle via wheelchair.
== END 2021-01-29 10:04 | disposition home or self-care (01) | DRG 269 ==
LOC: ICU 06:22
PROVIDERS: Admitting Provider Thoracic Surgery (Cardiothoracic Vascular Surgery); PCP Internal Medicine; Visit Provider Thoracic Surgery (Cardiothoracic Vascular Surgery)
PROC: 04V03ZZ Restriction of Abdominal Aorta, Percutaneous Approach (ICD-10-PCS; principal; 2021-01-28 07:00)
PROC: 04V03DZ Restriction of Abdominal Aorta with Intraluminal Device, Percutaneous Approach (ICD-10-PCS; principal; 2021-01-28 07:00)
DX: I71.4 Abdominal aortic aneurysm, without rupture (principal); E78.5 Hyperlipidemia, unspecified; Z82.49 Family history of ischemic heart disease and other diseases of the circulatory system
CPT/HCPCS: 36415; 51702; 71046; 80048; 81001; 85025; 85610; 86850; 86900; 86920; 93005; C1760; C1769; C1773; C1887; C1894; J0690; J1100; J1170; J1644; J2250; J2370; J2405; J2704; J2710; J2720; J3010; J3490; J7030; P9016; Q9967

== ENCOUNTER 2021-04-18 08:02 | Outpatient (CLI) | payer OTHER, SELFPAY ==
--- NOTE | 2021-04-18 08:06 | CT_ITS ---
WS: [id number] CTA ABDOMEN PELVIS TECHNIQUE: Noncontrast plus contrast enhanced CTA of the abdominal aorta with coronal and sagittal re formatted images and additional MIP Images. CLINICAL INFORMATION: I71.4 - Abdominal aortic aneurysm, without rupture COMPARISON: October 16, 2020 October 09, 2020 DLP: 2211.[address] scans at [facility] use at least one of these dose optimization techniques: automat ed exposure control; mA and/or kV adjustment per patient size (includes targeted exams where dose is matched to clinical indication); or iterative reconstruction. FINDINGS: Prior postoperative changes aortic endograft with biiliac extension. Excluded aneurysm sac. Aortic en dograft is new from the prior CTA.. Excluded aneurysm sac measures 6.5 x 6.3 x 11.1 CCM. AP by transv erse by craniocaudal. No evidence of intramural hematoma on the noncontrast imaging. Small amount of contrast staining consistent with endoleak in the inferior left dorsal aneurysm sac likely due to lum bar artery. Small feeding artery in this area. Additional type I B endoleak at the graft attachment s ites just above the bifurcation. Lung bases are well aerated. Slight atelectasis right lower lobe. Tiny noncalcified nodule in the edmund gula measuring 4 mm. Normal portal vein and splenic vein. Small cysts undersurface left hepatic lobe. Gallbladder is contr acted. Normal GE junction. Mild fatty atrophy of the pancreas. Adrenal glands are normal. Normal laura l parenchymal enhancement. No hydronephrosis. Small bilateral renal cysts largest in the right measur ing 2.2 CM. Celiac and SMA are patent. Bilateral renal arteries are patent with normal renal parenchymal enhancem ent. LUCY not well visualized. Sigmoid diverticulosis. No evidence of high-grade small or large bowel obstruction. Enlarged prostate measuring 4.5 x 4.7 CM. Small fat-containing ventral hernias. No free fluid in the pelvis. Chronic c ompression of the L1 vertebral body. CT/CT angio abdomen pelvis 28571 IMPRESSION: 1. Interval postoperative changes aortic endograft placement with biiliac exte nsion. 2. Small endoleak seen on the delayed imaging in the dorsal left aspect of the graft likely due to a small feeding paravertebral lumbar artery consistent wit h type II endoleak. 3. Aneurysm size is stable compared to previous with excluded aneurysm sac tod ay. 4. Additional small endoleak at the graft junctions just above the bifurcation consistent with type I B endoleak. 5. Additional nonvascular findings as described above.
[2021-04-18 09:01] LABS: Blood Urea Nitrogen 10 mg/dL (8-23)
[2021-04-18] MEDS: iohexol 350 mg/mL 100 mL Btl IV (09:16)
== END 2021-04-18 08:03 | disposition home or self-care (01) ==
PROVIDERS: PCP Internal Medicine; Visit Provider Thoracic Surgery (Cardiothoracic Vascular Surgery)
DX: I71.4 Abdominal aortic aneurysm, without rupture (principal)
CPT/HCPCS: 74174; 82565; 84520; Q9967

== ENCOUNTER 2021-12-05 08:52 | Outpatient (CLI) | payer OTHER, SELFPAY ==
--- NOTE | 2021-12-05 09:58 | CT_ITS ---
WS: [id number] CT ANGIOGRAPHY abdomen and pelvis HISTORY: AAA TECHNIQUE: Pre and postcontrast imaging of the aorta. CT angiogram is performed during IV injection. Reformation images reviewed. All CT scans at [facility] use at least one of these dose optimiz ation techniques: automated exposure control; mA and/or kV adjustment per patient size (includes targ eted exams where dose is matched to clinical indication); or iterative reconstruction. CONTRAST: Omnipaque 350; 95 mL IV. DLP: 2412.39 mGy.cm COMPARISON: 04/18/2021 5 mm noncalcified nodule at the lingula. Otherwise lung bases are clear. Mild enlargement of the hear t chambers. No effusion. Small hiatal hernia. Abdominal aorta: Patient is status post aortic endograft with biiliac extensions. Excluded aneurysm s ac extends over a length of 10 cm. Maximum transverse diameter is 6.4 cm. As compared to the prior ex amination there is been no significant increase in size of the aneurysmal sac. On the delayed imaging there is an endovascular leak identified which has increased and progressed since the prior study. B lush-like area of enhancement noted in the capitan grande band aortic aneurysm posterior to the graft. The leak is along the posterior LEFT lateral endovascular graft just proximal to the LEFT iliac extension. There is also extension of leak along the proximal LEFT iliac endograft. This endovascular leak was identi fied on the prior study but there is more enhancement within the thrombus 2 endoleaks where identifie d on the prior study. Endoleak now appears contiguous with no separation between the delayed areas of blush-like enhancement. Bilateral iliac stents are unchanged. Patent celiac axis and SMA. Renal arteries are both patent. Good enhancement within each kidney. Stab le cyst RIGHT kidney. Liver and spleen are unchanged from the prior studies. There are a few small he patic cysts. No adenopathy or ascites. Ventral abdominal wall hernia is subxiphoid. Hernia contains f at only. Additional hernia the umbilical level contains fat only. No GI tract obstruction. Numerous diverticula in the sigmoid colon without acute diverticulitis. Mild diffuse bladder wall thickening. Prostate gland is enlarged with central calcification. Prostate melody sures 5.3 x 5.5 cm. Inguinal canals are patent bilaterally. There is a loop of colon extending into t he LEFT inguinal hernia. This is new since the prior study. No obstruction at this time. Remote 40% compression fracture L1. CT/CT angio abdomen pelvis [id number] IMPRESSION: 1. Status post aortic endograft placement with by iliac extensions. No increas e in size of the large capitan grande band aneurysm. 2. Previously described endovascular leaks have increased in size since 04/18/20 21. These endovascular leaks are now contiguous and may be typed I or type II endovascular leaks. Leak extends along the posterior LEFT lateral graft and ext ernal to the proximal LEFT iliac graft. 3. New LEFT inguinal hernia contains a loop of colon. No obstruction. 4. Diverticulosis. 5. Remote chronic L1 lumbar spine compression fracture.
[2021-12-05] MEDS: iohexol 350 mg/mL 100 mL Btl IV (10:36)
[2021-12-05 10:37] LABS: Blood Urea Nitrogen 16 mg/dL (8-23)
== END 2021-12-05 08:53 | disposition home or self-care (01) ==
PROVIDERS: PCP Internal Medicine; Visit Provider Internal Medicine Cardiovascular Disease
DX: I71.4 Abdominal aortic aneurysm, without rupture (principal); S32.019A Unspecified fracture of first lumbar vertebra, initial encounter for closed fracture; X58.XXXA Exposure to other specified factors, initial encounter; K40.90 Unilateral inguinal hernia, without obstruction or gangrene, not specified as recurrent; K57.90 Diverticulosis of intestine, part unspecified, without perforation or abscess without bleeding
CPT/HCPCS: 74174; 82565; 84520

== ENCOUNTER → 2021-12-06 09:01 | Outpatient (BNVA) | payer OTHER, SELFPAY | PROVIDERS: PCP Internal Medicine; Visit Provider Thoracic Surgery (Cardiothoracic Vascular Surgery) | DX: I71.4 Abdominal aortic aneurysm, without rupture (principal); Z86.79 Personal history of other diseases of the circulatory system | CPT/HCPCS: 99213 ==